=== PATIENT | male | born 1995 | race Caucasian/White ===

== ENCOUNTER 2020-11-09 04:14 | Inpatient (IN) | payer OTHER, SELFPAY ==
[2020-11-09] VITALS (22 sets, daily range): BP systolic 112–129; BP diastolic 60–80; PULSE 59–86; RESP 12–21; TEMP 36.1–36.7; O2SAT 96–100; BMI 23.7; BMI 24.7
--- NOTE | ~2020-11-09 | XR_ITS ---
EXAMINATION: XR chest 2V 11/09/2020 04:47 INDICATION: Left-sided chest pain for 5 hours PROCEDURE: PA and lateral views of the chest COMPARISON: No prior studies for comparison. FINDINGS: The lungs are clear. The cardiomediastinal silhouette is within normal limits. There are no pleural effusions. There is no pneumothorax suspected. IMPRESSION: 1: NO ACUTE CARDIOPULMONARY DISEASE. Reviewed, dictated and finalized at location A[facility]
--- NOTE | 2020-11-09 04:24 | PC.NURSE ---
pt c/o pain to left side of his neck to his left shoulder. pt states pain was dull before he went to sleep but the pain woke him from sleep around 0300. pt describes the pain as being sharp with some tingling down his arm. pt rates pain 6/10. 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
--- NOTE | 2020-11-09 04:33 | ECG_ITS ---
Measurements Intervals [place] Rate: 71 P: 72 PA: 171 QRS: 62 QRSD: 108 T: 60 QT: 362 QTc: 394 Interpretive Statements SINUS RHYTHM BASELINE ARTIFACT- V3 NORMAL ECG Electronically Signed On 11-09-2020 7:29:07 CAMPUS MANAGER by Álvaro Sanchez D.O.
--- NOTE | 2020-11-09 04:34 | ED.CHESTPAIN ---
HPI - Chest Pain General Chief Complaint: Chest Pain Stated Complaint: Left arm pain, cp Time Seen by Provider: 11/09/20 04:18 Source: RN notes reviewed History of Present Illness HPI narrative: Patient presents to emergency department from home for left shoulder pain. Patient states that pain began last night when he was laying in bed. The pain is located in left upper chest and goes in the left shoulder. States the pain is worse with deep inspiration. Patient states that he does have some mild shortness of breath with the symptoms he states that he did recently start a new work-up planned but denies any direct trauma or injury. He notes mild pain with movement of the shoulder but nothing that worsens the pain is severe is deep inspiration he denies any fevers or chills abdominal pain nausea vomiting Related Data Home Medications Medication Instructions Recorded Confirmed No Home Medications 11/09/20 11/09/20 Allergies Allergy/AdvReac Type Severity Reaction Status Date / Time No Known Allergies Allergy Verified 11/09/20 04:21 Review of Systems Review of Systems: Narrative: Gen.: Denies fevers or chills Eyes: Denies eye pain or visual change ENT: Denies congestion Respiratory: Denies shortness of breath or cough CV: Reports chest pain GI: Denies abdominal pain nausea, emesis or diarrhea Musculoskeletal: Denies back pain reports left shoulder pain Neuro: Denies numbness, tingling, weakness or focal weakness Skin: Denies rash Except as documented, all other systems reviewed and negative [facility] Past Medical History Medical History (Updated 11/09/20 @ 06:46 by Hayden Driscoll DO) Patient denies significant medical history Family History Family History (Updated 11/05/20 @ 13:59 by Crissy Dawson CMA) Mother Anxiety Sibling Anxiety Grandparent Hearing loss Grandparent Arthritis Social History Social History Smoking status: Never smoker Alcohol intake: current Exam Narrative: Exam Narrative: APPEARANCE: No acute distress, nontoxic, resting in bed EYES: EOMI HEENT: Normocephalic, atraumatic, OMM RESPIRATORY: No respiratory distress Clear to auscultation bilaterally with no rhonchi wheezing or rales. CARDIOVASCULAR: Regular rate and rhythm without murmurs rubs or gallops. Chest: Turn palpation left anterior superior chest wall pain increased with deep inspiration ABDOMINAL: Soft, nontender, nondistended, no rebound or guarding MUSCULOSKELETAl: Moves all extremities. No clubbing, cyanosis or edema. Tender palpation left anterior shoulder no swelling ecchymosis mild pain with flexion abduction greater than 90 degrees, pain increased with deep inspiration radial pulse 2+ NEURO: Awake and alert. Following commands, speech normal, no focal deficits SKIN:: Warm, dry. No rashes lesions or abrasions PSYCHIATRIC: Normal affect/mood, Course Course Emergency Course: Patient meets PERC rule criteria and no further testing needs to be performed for pulmonary embolism. Discussed with Dr. Ibrahim presentation and work-up. Agrees with admission at this time Discussed with patient and family results of workup and diagnosis. Discussed need for admission. Patient and family understand and agree to current treatment plan Vital Signs Vital signs: Vital Signs Temperature 96.9 F L 11/09/20 04:18 Pulse Rate 81 11/09/20 04:18 Respiratory Rate 18 11/09/20 04:18 Blood Pressure 129/70 11/09/20 04:18 Pulse Oximetry 100 11/09/20 04:18 Temperature 98.1 F 11/09/20 04:32 Pulse Rate 63 11/09/20 06:30 Respiratory Rate 19 11/09/20 06:30 Blood Pressure 113/80 11/09/20 06:01 Pulse Oximetry 100 11/09/20 06:30 MDM - Chest Pain Lab Data Result diagrams: 11/09/20 04:47 11/09/20 04:47 Labs: Lab Results 11/09/20 11/09/20 11/09/20 Range/Units 04:47 04:47 04:47 WBC 7.0 (4.5-10.0) K/mm3 RBC
[2020-11-09] MEDS: KETOROLAC 30 MG/ML VIAL (*BKC) IV PUSH (04:44)
[2020-11-09 04:54] LABS: Basophils Absolute Auto 0.1 K/mm3 (0.0-0.1); Eosinophils Absolute Auto 0.2 K/mm3 (0-0.3); Eosinophils Percent Auto 2.7 % (0-4.4); Hematocrit 44.2 % (42.0-52.0); Immature Granulocyte Absolute 0.02 K/mm3 (0.00-0.031); Immature Granulocyte Percent A 0.3 % (0-0.5); Lymphocytes Absolute Auto 2.08 K/mm3 (0.9-3.2); Lymphocytes Percent Auto 29.9 % (18.3-44.2); Mean Corpuscular HGB Conc 33.9 g/dl (32-36); Mean Corpuscular Hemoglobin 28.7 pg (26-34); Mean Corpuscular Volume 84.5 fl (80-100); Mean Platelet Volume 9.5 fl (7.4-10.4); Monocytes Absolute Auto 0.6 K/mm3 (0.1-0.6); Monocytes Percent Auto 8.9 % (2.6-8.5); Neutrophils Percent Auto 57.2 % (45.5-73.1); Platelet Count Result 240 k/mm3 (150-375); Red Blood Count 5.23 M/mm3 (4.6-6.20); Red Cell Distribution Width 12.5 % (11.5-14.5)
[2020-11-09 05:07] LABS: Prothrombin Time 14.2 Seconds (11.1-14.7)
[2020-11-09 05:08] LABS: Partial Thromboplastin Time 28.9 SECONDS (22.3-36.8)
[2020-11-09 05:18] LABS: Troponin I < 0.012 ng/mL (0.000-0.034)
[2020-11-09 05:29] LABS: Anion Gap 7 mmol/L (8-16); Blood Urea Nitrogen 20 mg/dL (9-20); Calcium 9.5 mg/dL (8.4-10.2); Carbon Dioxide 28 mmol/L (22-30); Chloride 103 mmol/L (98-107); Creatine Kinase 3167 U/L (55-170); Estimated CRCL calculation 136 ml/min; Estimated Glomerular Filt Rate > 60; Glucose 98 mg/dL (75-110); Potassium 4.7 mmol/L (3.4-5.0); Sodium 138 mmol/L (137-145)
[2020-11-09] MEDS: SODIUM CHLORIDE 0.9% IV 1,000 ML 999 ML IV CONT ×2 (05:42→06:36)
[2020-11-09 05:58] LABS: Add Urine Microscopic? NO; Appearance Urine Clear (Clear); Bilirubin Urine Negative (Negative); Blood Urine Negative (Negative); Color Urine Straw (Yellow); Glucose Urine UA Negative (Negative); Ketones Urine Negative (Negative); Leukocyte Esterase Ur Negative LEU/UL (Negative); Nitrate Urine Negative (Negative); Protein Urine Negative (Negative); Specific Grav Ur 1.017 (1.001-1.035); Urobilinogen Urine Negative mg/dL (<2.0)
[2020-11-09 08:01] LABS: Troponin I < 0.012 ng/mL (0.000-0.034)
--- NOTE | 2020-11-09 08:10 | ADMGEN ---
This patient, Terrance Solis, was admitted to Medical Room 349-01. Patient/family oriented to hospital policies and general routines including ID bracelet, bed and alarms, visiting hours, pain management, procedures, bathroom and other care routines, personal items, smoking policy, room service/diet, and visiting hours. Information on how to activate the Rapid Response Team has been discussed. Patient/Family are encouraged to report perceived risks to care and to ask questions if they do not understand what they are told or what they should do.
[2020-11-09] MEDS: SODIUM CHLORIDE 0.9% IV 1,000 ML 150 ML IV CONT ×3 (08:34→21:53)
--- NOTE | 2020-11-09 09:32 | PM.IMHP ---
H&P: HPI History of Present Illness Date/Time: 11/09/20 09:32 Chief Complaint: Shoulder pain Narrative: Terrance Solis is a 25 year old male who is healthy and was in his normal state of health when he noticed some left shoulder/upper arm pain for the last few days. He initially thought it was from working out as he started a new workout routine recently and has been doing a lot of weightlifting. He woke up last night overnight with a numbness in his shoulder and his was worried about cardiac disease so he came into the emergency room. He states the numbness has gone away. He feels generally sore like he usually does when he works out but nothing significant. He has not had any falls or significant trauma. He takes no supplements or routine medications. He has full range of motion to the left shoulder. He just had tingling in his shoulder that did not radiate anywhere else and has not happened since. He denies hematuria, diffuse body aches, chest pain, shortness of breath, fevers, chills, nausea, vomiting, leg swelling or abdominal pain. He has never had this happen to him before. He had COVID-19 back in September with no issues since. Review of Systems Review of Systems: All systems reviewed & are unremarkable except as noted in HPI and below PMFSH Past Medical History Medical History Patient denies significant medical history Family History Family History Mother Anxiety Sibling Anxiety Grandparent Hearing loss Grandparent Arthritis Social History Social History (Updated 11/09/20 @ 14:57 by Neema Villarreal PA-C) Social History: Patient rarely drinks alcohol maybe 1-2 drinks a month, does not smoke, does not do drugs or utilize marijuana. He works in finance. He would like to be a full code. If he is unable to make decisions for himself, he appoints his , Francine, to be his surrogate decision maker Smoking status: Never smoker Alcohol intake: current Spiritual care concerns: No Meds Home Medications and Allergies Home Medications Medication Instructions Recorded Confirmed Type No Home Medications 11/09/20 11/09/20 History Allergies Allergy/AdvReac Type Severity Reaction Status Date / Time No Known Allergies Allergy Verified 11/09/20 04:21 Vital Signs Vital Signs - 24 hr 11/09/20 04:18 11/09/20 04:32 11/09/20 04:40 Temperature 96.9 F L 98.1 F Pulse Rate 81 83 70 Respiratory Rate 18 16 19 Blood Pressure 129/70 120/80 Pulse Oximetry 100 100 98 11/09/20 04:49 11/09/20 04:50 11/09/20 05:00 Temperature Pulse Rate 71 86 69 Respiratory Rate 17 16 19 Blood Pressure 113/75 Pulse Oximetry 97 99 97 11/09/20 05:02 11/09/20 05:15 11/09/20 05:16 Temperature Pulse Rate 71 66 64 Respiratory Rate 19 19 18 Blood Pressure 117/65 112/69 Pulse Oximetry 98 97 97 11/09/20 05:30 11/09/20 05:31 11/09/20 05:32 Temperature Pulse Rate 70 69 71 Respiratory Rate 19 21 H 19 Blood Pressure 116/73 Pulse Oximetry 98 96 97 11/09/20 05:49 11/09/20 05:51 11/09/20 06:01 Temperature Pulse Rate 59 L 68 Respiratory Rate 14 13 Blood Pressure 120/60 113/80 Pulse Oximetry 100 100 100 11/09/20 06:02 11/09/20 06:15 11/09/20 06:30 Temperature Pulse Rate 61 63 63 Respiratory Rate 12 16 19 Blood Pressure Pulse Oximetry 100 100 100 11/09/20 08:05 11/09/20 08:11 Temperature 97.1 F L Pulse Rate 65 64 Respiratory Rate 20 18 Blood Pressure 126/67 121/76 Pulse Oximetry 100 100 Exam Narrative: Exam Narrative: General:Well developed well nourished patient HEENT: Normocephalic, atraumatic, PERRL, Sclerae anicteric, oral mucosa moist. Neck: Supple Resp: CTA Heart: RRR with no murmurs Abd: Soft, nontender. No pain to palpation. Positive bowel sounds Skin: Warm and dry Extremities: No swelling, erythema or pain to palpati
[2020-11-09 10:55] LABS: Troponin I < 0.012 ng/mL (0.000-0.034)
[2020-11-09 14:25] LABS: Anion Gap 7 mmol/L (8-16); Blood Urea Nitrogen 14 mg/dL (9-20); Calcium 8.4 mg/dL (8.4-10.2); Carbon Dioxide 24 mmol/L (22-30); Chloride 108 mmol/L (98-107); Estimated CRCL calculation 136 ml/min; Estimated Glomerular Filt Rate > 60; Glucose 76 mg/dL (75-110); Potassium 3.8 mmol/L (3.4-5.0); Sodium 139 mmol/L (137-145)
[2020-11-09 14:29] LABS: Creatine Kinase 2234 U/L (55-170)
[2020-11-10] MEDS: SODIUM CHLORIDE 0.9% IV 1,000 ML 150 ML IV CONT ×3 (04:38→18:38)
[2020-11-10 06:00] VITALS: BP 113/58; PULSE 72; RESP 18; TEMP 36.4; O2SAT 98
[2020-11-10 06:03] LABS: Basophils Absolute Auto 0.1 K/mm3 (0.0-0.1); Basophils Percent Auto 1.1 % (0.2-1.2); Eosinophils Absolute Auto 0.2 K/mm3 (0-0.3); Hematocrit 40.3 % (42.0-52.0); Hemoglobin 13.6 g/dL (14.0-18.0); Immature Granulocyte Absolute 0.02 K/mm3 (0.00-0.031); Immature Granulocyte Percent A 0.4 % (0-0.5); Lymphocytes Absolute Auto 1.94 K/mm3 (0.9-3.2); Lymphocytes Percent Auto 36.7 % (18.3-44.2); Mean Corpuscular HGB Conc 33.7 g/dl (32-36); Mean Corpuscular Hemoglobin 28.3 pg (26-34); Mean Platelet Volume 9.6 fl (7.4-10.4); Monocytes Absolute Auto 0.5 K/mm3 (0.1-0.6); Monocytes Percent Auto 8.5 % (2.6-8.5); Neutrophils Absolute Auto 2.7 K/mm3 (1.3-6.7); Neutrophils Percent Auto 50.3 % (45.5-73.1); Platelet Count Result 216 k/mm3 (150-375); Red Cell Distribution Width 12.3 % (11.5-14.5); White Blood Count 5.3 K/mm3 (4.5-10.0)
[2020-11-10 06:19] LABS: Anion Gap 5 mmol/L (8-16); Blood Urea Nitrogen 9 mg/dL (9-20); Calcium 8.7 mg/dL (8.4-10.2); Carbon Dioxide 25 mmol/L (22-30); Chloride 108 mmol/L (98-107); Creatine Kinase 1269 U/L (55-170); Estimated CRCL calculation 154 ml/min; Estimated Glomerular Filt Rate > 60; Glucose 102 mg/dL (75-110); Sodium 138 mmol/L (137-145)
[2020-11-10] MEDS: FUROSEMIDE INJ 40 MG/4 ML VIAL 20 MG IV PUSH (08:55)
[2020-11-10 13:56] LABS: Creatine Kinase 1380 U/L (55-170)
[2020-11-10 14:00] VITALS: BP 121/71; PULSE 69; RESP 18; TEMP 36.1; O2SAT 99
--- NOTE | 2020-11-10 14:07 | PM.IMPN ---
Progress Note: A&P Assessment and Plan (1) Rhabdomyolysis: Code(s): M62.82 - Rhabdomyolysis Status: Acute Assessment and Plan: Patient's CK was found to be 3167 on admission -no hematuria -no signs of kidney failure -likely due to recent workout routine -continue IV fluids, CK now down to 1380 -will discharge once the patient's CK is under a 1000 (2) Left shoulder pain: Code(s): M25.512 - Pain in left shoulder Status: Acute Assessment and Plan: Patient advised that he should see his primary care doctor and possibly undergo an MRI if he continues to have muscular shoulder pain with tingling -he has no point tenderness to the bone and has full range of motion -no fall or trauma, fracture seems very unlikely -he could have a radiculopathy, he has been lifting weights and works on a computer and works from home -right now he says the tingling is gone and the pain is minimal -No weakness associated with this (3) Patient denies significant medical history: Status: Acute Time Spent With Patient Time with patient: 25 - 35 minutes Subjective Date/time seen: 11/10/20 14:07 Interval history: Pt is a 25-year-old male for rhabdomyolysis. Patient states he is less sore today and feels okay. He has no further tingling to his left shoulder. He denies any weakness, urine discoloration, blood in his urine, abdominal pain, nausea, vomiting, fevers, chills, chest pain or shortness of breath. Review of Systems Review of Systems: All systems reviewed & are unremarkable except as noted in HPI and below Exam Narrative: Exam Narrative: General:Well developed well nourished patient HEENT: Normocephalic, atraumatic, PERRL, Sclerae anicteric, oral mucosa moist. Neck: Supple Resp: CTA Heart: RRR with no murmurs Abd: Soft, nontender. No pain to palpation. Positive bowel sounds Skin: Warm and dry Extremities: No swelling, erythema or pain to palpation to the lower or upper extremities. Left shoulder without point tenderness and able to be moved in all directions without pain or tingling. Neuro: Alert and Oriented x4 . CN 2-12 intact. No focal neurological deficits. Objective Data Vital Signs Vital Signs: Vital Signs - 24 hr 11/09/20 21:43 11/10/20 06:00 Temperature 97.3 F L 97.5 F L Pulse Rate 66 72 Respiratory Rate 16 18 Blood Pressure 127/71 113/58 L Pulse Oximetry 98 98 Intake/Output Intake/Output: Intake & Output 11/07/20 11/08/20 11/09/20 11/10/20 23:59 23:59 23:59 23:59 Intake Total 6610 2930 Output Total 3700 2850 Balance 2910 80 Meds/Results Medications: Active Medications Generic Name Dose Route Start Last Admin Trade Name Kayley PRN Reason Stop Dose Admin Acetaminophen 650 mg 11/09/20 09:31 Acetaminophen 325 Mg Tablet PO Q4H PRN pain, headache, fever Sodium Chloride 1,000 mls @ 150 mls/hr 11/09/20 06:35 11/10/20 11:18 Normal Saline Iv IV CONT 150 mls/hr .Q6H40M YUE Administration Radiology Results: ITS Impressions Chest X-Ray 11/09/20 11:07 IMPRESSION: 1: NO ACUTE CARDIOPULMONARY DISEASE. Labs Labs: Laboratory Results - last 24 hr 11/09/20 11/09/20 11/10/20 14:03 14:03 05:35 WBC 5.3 RBC 4.80 Hgb 13.6 L Hct 40.3 L MCV 84.0 MCH 28.3 MCHC 33.7 RDW 12.3 Plt Count 216 MPV 9.6 Immature Gran % (Auto) 0.4 Neut % (Auto) 50.3 Lymph % (Auto) 36.7 [place] % (Auto) 8.5 Eos % (Auto) 3.0 Baso % (Auto) 1.1 Lymph # (Auto) 1.94 [place] # (Auto) 0.5 Eos # (Auto) 0.2 Baso # (Auto) 0.1 Abs Immat Gran (auto) 0.02 Absolute Neuts (auto) 2.7 Absolute Nucleated RBC 0.0 Nucleated RBC % 0.0 Sodium 139 Potassium 3.8 Chloride 108 H Carbon Dioxide 24 Anion Gap 7 L BUN 14 D Creatinine 0.80 Estim Creat Clear Calc 136 Estimated GFR > 60 Glucose 76 Calcium 8.4 Total Creatine Kinase 2234 H
[2020-11-10 22:00] VITALS: BP 115/66; PULSE 63; RESP 18; TEMP 36.6; O2SAT 98
[2020-11-11] MEDS: SODIUM CHLORIDE 0.9% IV 1,000 ML 150 ML IV CONT ×4 (01:21→20:53)
[2020-11-11 05:46] VITALS: BP 142/54; PULSE 52; RESP 18; TEMP 36.1; O2SAT 99
[2020-11-11 07:19] LABS: Anion Gap 2 mmol/L (8-16); Blood Urea Nitrogen 11 mg/dL (9-20); Calcium 8.7 mg/dL (8.4-10.2); Carbon Dioxide 29 mmol/L (22-30); Chloride 108 mmol/L (98-107); Estimated CRCL calculation 154 ml/min; Estimated Glomerular Filt Rate > 60; Glucose 101 mg/dL (75-110); Potassium 4.2 mmol/L (3.4-5.0); Sodium 139 mmol/L (137-145)
[2020-11-11 07:28] LABS: Creatine Kinase 3134 U/L (55-170)
[2020-11-11 09:32] LABS: CRP < 0.5 mg/dL (<1.0); Phosphorus 2.8 mg/dL (2.5-4.5)
[2020-11-11] MEDS: FUROSEMIDE INJ 40 MG/4 ML VIAL 20 MG IV PUSH (09:46)
--- NOTE | 2020-11-11 09:49 | PM.IMPN ---
Progress Note: A&P Assessment and Plan (1) Rhabdomyolysis: Code(s): M62.82 - Rhabdomyolysis Status: Acute Assessment and Plan: Patient's CK was found to be 3167 on admission and was coming down nicely until last night and today -originally thought to be due to new exercise routine, patient has no muscle soreness at this time -he takes no medications or supplements at home. No history of viral illness (except COVID in September which he recovered from) -with CK worsening, other rare differentials are being evaluated: Autoimmune, muscular dystrophy(no family history), hypothyroidism, hypophosphatemia, HIV, connective tissue disorder, drug screen etc -patient may need a muscle biopsy -continue IV fluids and will give Lasix to help facilitate this -no evidence of renal failure and no hematuria -will check repeat UA -continue IV fluids (2) Left shoulder pain: Code(s): M25.512 - Pain in left shoulder Status: Acute Assessment and Plan: Patient advised that he should see his primary care doctor and possibly undergo an MRI if he continues to have muscular shoulder pain with tingling -he has no point tenderness to the bone and has full range of motion -no fall or trauma, fracture seems very unlikely -he could have a radiculopathy, he has been lifting weights and works on a computer and works from home -right now he says the tingling is gone and the pain is minimal -No weakness associated with this -if this comes back, may consider MRI of the cervical spine or shoulder (3) Patient denies significant medical history: Status: Acute Subjective Date/time seen: 11/11/20 09:49 Interval history: Pt is a 25-year-old male for rhabdomyolysis. Patient was seen today and has no complaints. His left arm pain has resolved. No muscle pain, chest pain, hematuria, back pain, SOB, fevers, or chills. Exam Narrative: Exam Narrative: General:Well developed well nourished patient HEENT: Normocephalic, atraumatic, PERRL, Sclerae anicteric, oral mucosa moist. Neck: Supple Resp: CTA Heart: RRR with no murmurs Abd: Soft, nontender. No pain to palpation. Positive bowel sounds Skin: Warm and dry Extremities: No swelling, erythema or pain to palpation to the lower or upper extremities. Left shoulder without point tenderness and able to be moved in all directions without pain or tingling. Neuro: Alert and Oriented x4 . CN 2-12 intact. No focal neurological deficits. Objective Data Vital Signs Vital Signs: Vital Signs - 24 hr 11/10/20 14:00 11/10/20 22:00 11/11/20 05:46 Temperature 97.0 F L 97.9 F 96.9 F L Pulse Rate 69 63 52 L Respiratory Rate 18 18 18 Blood Pressure 121/71 115/66 142/54 H Pulse Oximetry 99 98 99 Intake/Output Intake/Output: Intake & Output 11/08/20 11/09/20 11/10/20 11/11/20 23:59 23:59 23:59 23:59 Intake Total 6610 5170 1999 Output Total 3700 4050 Balance 2910 1120 1999 Meds/Results Medications: Active Medications Generic Name Dose Route Start Last Admin Trade Name Freq PRN Reason Stop Dose Admin Acetaminophen 650 mg 11/09/20 09:31 Acetaminophen 325 Mg Tablet PO Q4H PRN pain, headache, fever Sodium Chloride 1,000 mls @ 150 mls/hr 11/09/20 06:35 11/11/20 08:04 Normal Saline Iv IV CONT 150 mls/hr .Q6H40M YUE Administration Radiology Results: ITS Impressions Chest X-Ray 11/09/20 11:07 IMPRESSION: 1: NO ACUTE CARDIOPULMONARY DISEASE. Labs Labs: Laboratory Results - last 24 hr 11/10/20 11/11/20 11/11/20 13:32 05:43 09:09 Sodium 139 Potassium 4.2 Chloride 108 H Carbon Dioxide 29 Anion Gap 2 L BUN 11 Creatinine 0.70 Estim Creat Clear Calc 154 Estimated GFR > 60 Glucose 101 Calcium 8.7 Phosphorus 2.8 Total Creatine Kinase 1380 H 3134 H C-Reactive Protein < 0.5 Quality VTE Prophylaxis VTE prophylaxis: mechanical ordered
[2020-11-11 10:10] LABS: HIV 1/2 Ab P24 Ag Result Negative (Negative)
[2020-11-11 10:48] LABS: Add Urine Microscopic? NO; Appearance Urine Clear (Clear); Bilirubin Urine Negative (Negative); Blood Urine Negative (Negative); Color Urine Colorless (Yellow); Glucose Urine UA Negative (Negative); Ketones Urine Negative (Negative); Leukocyte Esterase Ur Negative LEU/UL (NEGATIVE); Nitrate Urine Negative (Negative); Protein Urine Negative (Negative); Specific Grav Ur 1.006 (1.001-1.035); Urobilinogen Urine Negative mg/dL (<2.0)
[2020-11-11 10:53] LABS: Creatine Kinase 4625 U/L (55-170)
[2020-11-11 11:06] LABS: Amphetamine Screen Urine Negative (Negative); Barbiturate Screen Urine Negative (Negative); Benzodiazepines Screen Urine Negative (Negative); Cannabinoid Screen Urine Negative (Negative); Cocaine Screen Urine Negative (Negative); Methadone Screen Urine Negative (Negative); Opiate Screen Urine Negative (Negative); Phencyclidine Screen Urine Negative (Negative)
[2020-11-11 14:00] VITALS: BP 132/74; PULSE 108; RESP 14; TEMP 36.9; O2SAT 98
[2020-11-11 20:35] VITALS: BP 115/67; PULSE 87; RESP 18; TEMP 36.6; O2SAT 99
[2020-11-12] MEDS: SODIUM CHLORIDE 0.9% IV 1,000 ML 150 ML IV CONT ×2 (04:41→11:26)
[2020-11-12 04:46] VITALS: BP 111/61; PULSE 65; RESP 18; TEMP 36.1; O2SAT 98
[2020-11-12 05:47] LABS: Anion Gap 2 mmol/L (8-16); Blood Urea Nitrogen 10 mg/dL (9-20); Calcium 8.5 mg/dL (8.4-10.2); Carbon Dioxide 27 mmol/L (22-30); Chloride 108 mmol/L (98-107); Estimated CRCL calculation 178 ml/min; Estimated Glomerular Filt Rate > 60; Glucose 99 mg/dL (75-110); Sodium 137 mmol/L (137-145)
[2020-11-12 07:01] LABS: Creatine Kinase 2753 U/L (55-170)
[2020-11-12 08:21] VITALS: O2SAT 98
--- NOTE | 2020-11-12 11:50 | PM.TDS ---
Transfer Discharge Sum: Prov Provider Date of admission: 11/11/20 09:43 Primary care physician: Blanche Burrosw DO Admitting clinician: Jose Alberto Ibrahim MD DS: Admitting Diagnosis Admitting Diagnosis Admitting Diagnosis: Rhabdomyolysis DS: Discharge Diagnosis Discharge Diagnosis (1) Rhabdomyolysis: Code(s): M62.82 - Rhabdomyolysis Status: Acute Assessment and Plan: Date of Admission 11/09/20 Date of Transfer 11/12/20 Mr. Solis is a pleasant 25yo M who was in his normal state of health up until the night prior to admission when sudden onset left shoulder pain with left arm numbness/tingling woke him out of his sleep. He was worried this may be an issue with his heart thus proceeded to ED for evaluation. CK was found to be elevated at 3167 on admission and he was admitted to the hospitalist service for evaluation and management of rhabdomyolysis. He notes he tested positive for COVID-19 in Sep 2020 and was mildly symptomatic with nasal congestion and fever x 2 days, no ongoing issues or symptoms. Renal function is adequate and has remained stable. He was maintained on IV fluids NS @ 150mL/hr. CK trended down as low as 1269 on 11/10/20 then unfortunately anup back to 4625. Previous provider discussed case with multiple providers at tertiary care centers regarding the possibility of obtaining a muscle biopsy as etiology of acute rhabdo is unclear at this time. He describes a new workout routine in the last two weeks but is very light weightlifting, around 25lb dumbbells three times weekly. He describes being fairly physically fit and used to lift much heavier weight in the past. Patient is hemodynamically stable for transfer. CK day of transfer 11/12/20 is 2753. He is being transferred to higher level of care for muscle biopsy. Previous provider spoke with Dr. Lindquist at [facility] who has accepted the patient in transfer. (2) Left shoulder pain: Code(s): M25.512 - Pain in left shoulder Status: Acute Assessment and Plan: Patient advised that he should see his primary care doctor and possibly undergo an MRI if he continues to have muscular shoulder pain with tingling -he has no point tenderness to the bone and has full range of motion -no fall or trauma, fracture seems very unlikely -he could have a radiculopathy, he has been lifting weights and works on a computer and works from home -right now he says the tingling is gone and the pain is minimal -No weakness associated with this (3) Patient denies significant medical history: Status: Acute Transfer Discharge Sum: Med Medications Active and Home Medications: Home Medications No Home Medications 11/09/20 [History Confirmed 11/09/20] Active Medications Acetaminophen (Acetaminophen 325 Mg Tablet) 650 mg PO Q4H PRN PRN Reason: pain, headache, fever Sodium Chloride (Normal Saline Iv) 1,000 mls @ 150 mls/hr IV CONT .Q6H40M YUE Last Admin: 11/12/20 11:26 Dose: 150 mls/hr Documented by: Transfer Discharge Sum: Hosp Hospital Course Hospital course: See above. Time Spent with Patient Time attestation: Total time spent providing and/or coordinating transfer services: 40 minutes Exam Narrative: Exam Narrative: General:Well developed well nourished patient HEENT: Normocephalic, atraumatic, PERRL, Sclerae anicteric, oral mucosa moist. Neck: Supple Resp: CTA Heart: RRR with no murmurs Abd: Soft, nontender. No pain to palpation. Positive bowel sounds Skin: Warm and dry Extremities: No swelling, erythema or pain to palpation to the lower or upper extremities. Left shoulder without point tenderness and able to be moved in all directions without pain or tingling. Neuro: Alert and Oriented x4 . CN 2-12 intact. No focal neurological deficits. DS: Data Data Completed and Pending Labs on day of discharge: Labs from last 24 hours 11/12/20 05:28 Juanpablo
--- NOTE | 2020-11-12 12:27 | PC.NURSE ---
Called report to Katerina LAWRENCE at [facility]. [address] [place] [address].
[2020-11-19 04:01] LABS: Aldolase 45.9 U/L (<=8.1)
== END 2020-11-12 13:10 | disposition short-term general hospital (02) | DRG 558 ==
LOC: ANHED 06:46 → ANH3MED 07:43
PROVIDERS: Physician Assistant; Admitting Provider Family Medicine; Emergency Provider Emergency Medicine; PCP Family Medicine; Visit Provider Physician Assistant
DX: M62.82 Rhabdomyolysis (principal); M25.512 Pain in left shoulder; Z86.16 Personal history of COVID-19
CPT/HCPCS: 36415; 71046; 80048; 80307; 81003; 82085; 82550; 84100; 84443; 84484; 85025; 85610; 85730; 86038; 86140; 86703; 93005; 96360; 96361; 96374; 99285; G0378; G0432; J1885; J1940; J7030

== ENCOUNTER 2025-05-13 14:09 | Emergency (ER) | payer OTHER, SELFPAY ==
[2025-05-13 14:17] VITALS: BP 115/84; PULSE 71; RESP 16; TEMP 36.6; O2SAT 99
--- NOTE | 2025-05-13 14:35 | ED_ITS ---
HPI - Extremity Injury (Upper) General Chief Complaint: Extremity Injury, Upper Stated Complaint: right wrist pain Time Seen by Provider: 05/13/25 14:22 Source: patient and RN notes reviewed Mode of arrival: ambulatory Limitations: no limitations History of Present Illness HPI narrative: 29-year-old male patient presents with right wrist pain intermittently over the past 2 months. Denies injury or trauma. Denies numbness or tingling in the arm or hand. States he is still able to golf and do most other activities, but pain is exacerbated when he is picking up groceries, picking up his children, or using an Neo wrench. He has been using ice and home brace with slight improvement of symptoms. He is currently pain-free. Related Data Allergies Allergy/AdvReac Type Severity Reaction Status Date / Time No Known Allergies Allergy Verified 05/13/25 14:19 [facility] Past Medical History Medical History Patient denies significant medical history Family History Family History Mother Anxiety Sibling Anxiety Grandparent Hearing loss Grandparent Arthritis Social History Social History Social History: Patient rarely drinks alcohol maybe 1-2 drinks a month, does not smoke, does not do drugs or utilize marijuana. He works in finance. He would like to be a full code. If he is unable to make decisions for himself, he appoints his , Francine, to be his surrogate decision maker Smoking status: Never smoker Alcohol intake: current Alcohol use details: 1-3 drinks --rarely Spiritual care concerns: No Comments At time of signature, I have reviewed and agree with nursing past medical, surgical, social and family history unless otherwise noted. Please see nursing chart for further information. There is no relevant family history pertinent to the presenting complaint Exam Narrative: GENERAL: Well-appearing, well-nourished, and in no acute distress. HEAD: Normocephalic, atraumatic. EYES: EOMI. No redness or drainage. Conjunctivae normal. ENT: Mucous membranes pink and moist. NECK: Normal AROM. CHEST: No respiratory distress. EXTREMITIES: Right wrist: No erythema, edema, ecchymosis, or deformity noted. Hand and fingers are nontender. Wrist is nontender, however, patient localizes pain over the dorsal and lateral aspect of the distal ulna. Full passive and active range of motion without eliciting pain. Distal sensation intact. Capillary refill normal. Radial pulse normal. Hand mail distribution scheme examiner strong. SKIN: Warm, dry, no rash. Capillary refill normal. NEURO: No focal deficits. Alert and oriented x3. Gait steady. PSYCH: Normal affect. No signs of depression or anxiety. Course Course Level of Care: Express Care Visit Vital Signs Vital signs: Vital Signs Temperature 97.9 F 05/13/25 14:17 Pulse Rate 71 05/13/25 14:17 Respiratory Rate 16 05/13/25 14:17 Blood Pressure 115/84 05/13/25 14:17 Pulse Oximetry 99 05/13/25 14:17 Temperature 97.9 F 05/13/25 14:17 Pulse Rate 71 05/13/25 14:17 Respiratory Rate 16 05/13/25 14:17 Blood Pressure 115/84 05/13/25 14:17 Pulse Oximetry 99 05/13/25 14:17 Reviewed MDM - Extremity Injury (Upper) MDM Narrative Medical decision making narrative: 29-year-old male patient presents with 2 month history of intermittent wrist pain at the distal ulna, primarily with lifting/exertion, but is able to still complete most activity without issue. Denies numbness or tingling. Home ice and brace use has not been providing much relief. No known injury or trauma. Recommend follow-up with hand specialist for further evaluation and treatment. Will start patient on meloxicam to help with any inflammation. Etiology likely soft tissue injury/tendinitis/ligamentous injury. Vital signs stable. Anticipatory guidance given. Differential Diagnosis Differential diagnosis: Likely sprain and strain of wrist and other (Tendinitis, ligamentous injury) Critical Care Time Critical Care Time Critical Care Time: No Discharge Plan Discharge Clinical Impression: Pain in right wrist Patient Disposition: Home Condition: Stable Instructions: Arthralgia (ED) Additional Instructions: Please take the meloxicam as prescribed for your discomfort. Please call and schedule a follow-up visit with the hand specialist for further evaluation of your discomfort. Your blood pressure was elevated above 120/80 today at Urgent Care. This puts you above the threshold for follow up. Please schedule a followup visit with your personal physician as soon as possible, for further evaluation and treatment. Even blood pressure exceeding 120/80 may indicate pre-hypertension. Patient Language: Tamazight Prescriptions: New meloxicam 15 mg tablet 15 mg PO DAILY Qty: 14 0RF Follow-up/Referrals: Jonas Adkins MD [Physician] - Abhishek Lyn MD [Primary Care Provider] - Time of Disposition: 14:34
== END 2025-05-13 14:37 | disposition home or self-care (01) ==
PROVIDERS: Emergency Provider Nurse Practitioner; PCP Emergency Medicine
DX: M25.531 Pain in right wrist (principal)
CPT/HCPCS: 99213; G0463